=== PATIENT | male | born 1990 | race Two or more races ===

== ENCOUNTER 2021-08-05 13:34 | Emergency (ER) | payer OTHER ==
[~2021-08-05] VITALS: Ht 175.3 cm; Wt 106.8 kg
[2021-08-05 16:24] VITALS: BP 146/90
== END 2021-08-05 17:05 | disposition home or self-care (01) ==
LOC: M ED 13:34
DX: S20.219A Contusion of unspecified front wall of thorax, initial encounter (principal); S80.812A Abrasion, left lower leg, initial encounter; V49.59XA Passenger injured in collision with other motor vehicles in traffic accident, initial encounter; Y92.410 Unspecified street and highway as the place of occurrence of the external cause